=== PATIENT | male | born 1990 | race Caucasian/White ===

== ENCOUNTER → 2020-03-06 15:49 | Outpatient (CLI) | payer OTHER, SELFPAY ==
[2020-03-07 00:49] LABS: COVID19 Sendout Not Detected (Not Detect)
== END ==
PROVIDERS: PCP Family Medicine; Visit Provider Registered Nurse
DX: Z11.9 Encounter for screening for infectious and parasitic diseases, unspecified (principal)
CPT/HCPCS: 87635